=== PATIENT | female | born 1960 | race Caucasian/White ===

== ENCOUNTER 2017-03-09 13:47 | Observation (INO) ==
[2017-03-09 14:29] LABS: Amphetamine Screen,Urine Negative ng/mL (Cutoff=1000); Barbiturate Screen,Urine Negative ng/mL (Cutoff=200); Benzodiazepines Screen,Urine Positive ng/mL (Cutoff=200); Cannabinoid Screen,Urine Negative ng/mL (Cutoff = 50); Cocaine Screen,Urine Negative ng/mL (Cutoff= 300); Opiate Screen,Urine Negative ng/mL (Cutoff=300); Phencyclidine Screen,Urine Negative ng/mL (Cutoff=25)
--- NOTE | 2017-03-09 14:42 | Emergency Department Note ---
Disposition Clinical Impression: Wernickes encephalopathy, Hallucinations Disposition: Admitted As Inpatient Condition: Good Psych HPI - General Chief Complaint: ED Psychiatric Symptoms Stated Complaint: hallucinations Time Seen by Provider: 03/09/17 14:04 Source: patient, family Nursing Notes Reviewed: Yes Vital Signs Reviewed: Yes - History of Present Illness HPI Narrative: Patient is a 56 y/o female that present today, accompanied by her two daughters , with a history of hallucinations for approximately 24 hours. The patient reports that the previous evening she saw multiple clowns in her home and a man was trying "to get in her house". The following morning she saw multiple people , of difference ages, in her home, along with a deer and a kangaroo. The patient states that she interacted with the people and the kangaroo, in addition to cooking them lunch. This is the first time the patient has experienced this, which was supported by the daughters. The daughters also informed that the patient was taken to alf as a result of disorderly conduct when the [facility] department were called to her home to address "the man trying to get in her home". Additionally, the deer , kangaroo, and people accompanied the patient from alf to her home, around midnight. The patient does not believe that these figures are hallucinations because to her they "seemed very real" and she was able to hold conversations wtih them. The patient has a long-standing history of heavy alcohol consumption ranging from 6 cans of beer per day to 24 cans of beer per day. She smokes two packs of cigarettes per day. The patient believes herself to be healthy in regards to diet and drinks upwards of "a gallon of water per day". - Related Data Home Medications Medication Instructions Recorded Confirmed No Known Home Drugs 03/09/17 03/09/17 Allergies Allergy/AdvReac Type Severity Reaction Status Date / Time shellfish derived Allergy Anaphylaxis Verified 03/09/17 14:01 All systems ED: reviewed and negative except as stated. Constitutional: Denies: fever, chills Cardiovascular: Denies: chest pain, palpitations Respiratory: Denies: cough, dyspnea Gastrointestinal: Denies: abdominal pain, nausea Musculoskeletal: Denies: back pain Integumentary: Denies: rash, abrasion, lesions Neurological: Reports: abnormal gait. Denies: headache, weakness Psychiatric: Reports: auditory hallucinations, visual hallucinations Endocrine: Denies: fatigue Past Medical History - Past Medical History Medical history: Reports: no medical history Psychiatric history: Reports: no psych history - Social History Smoking Status: Current every day smoker Alcohol use: Reports: heavy Drug use: Reports: opiates Physical Exam General appearance: NAD, conversant Eyes: anicteric sclerae, moist conjunctivae; PERRL HENT: Atraumatic; oropharynx clear with moist mucous membranes and no mucosal ulcerations Neck: Normal inspection; Trachea midline; FROM, supple Lungs: CTA, with normal respiratory effort and no intercostal retractions CV: RRR, no MRGs Abdomen: Soft, non-tender; no rebound or gaurding Extremities: No peripheral edema or extremity lymphadenopathy Skin: Normal temperature; no rash, ulcers or lesions Psych: Appropriate mood and affect - General Limitations: no limitations General appearance: alert, in no apparent distress - Expanded Neurological Exam Patient oriented to: Present: person, place, time Speech: Present: fluid speech Cranial nerves: EOM function (II, III, IV, ): Normal, facial sensation (V): Normal, facial palsy (VII): Normal, gag reflex (IX): Normal, spinal accessory function (XI): Normal, tongue deviation (XII): Normal Cerebellar function: ataxic gait (2 steps at initiation) Motor strength - LUE: 5/5 Motor strength - RUE: 5/5 Motor strength - LLE: 5/5 Motor strength - RLE: 5/5 Coma Scale Eye Opening: Spontaneous Coma Scale Motor Response: Obeys Commands Coma Scale Verbal Response: Oriented Coma Scale Total: 15 Course - Reevaluation(s) Reevaluation #1: Upon reevaluation the patient's new onset hallucinations, confusion, ataxia in the setting of chronic alcohol use, patient will receive IV thiamine as well as a head CT. - Consultations Consultation #1: Discussed with hospital Dr. Evans. Pt accepted for admission Vital Signs Temperature 98.3 F 03/09/17 13:55 Pulse Rate 89 03/09/17 13:55 Respiratory Rate 16 03/09/17 13:55 Blood Pressure 141/82 03/09/17 13:55 O2 Sat by Pulse Oximetry 97 03/09/17 13:55 Temperature 97.7 F 03/10/17 07:42 Pulse Rate 65 03/10/17 07:42 Respiratory Rate 16 03/10/17 07:42 Blood Pressure 146/78 03/10/17 07:42 O2 Sat by Pulse Oximetry 96 03/10/17 07:42 Oxygen Delivery Oxygen Delivery Room Air Psych - Lab Data Result diagrams: 03/10/17 03:27 03/10/17 03:27 Lab Results 03/09/17 03/09/17 03/09/17 Range/Units 14:02 14:35 14:35 WBC 6.6 (4.3-11.1) K/mcL RBC 4.44 (3.82-4.97) M/mcL Hgb 13.9 (11.5-15.4) g/dL Hct 41.8 (35.3-44.9) % MCV 94.1 (83.0-100.0) fL MCH 31.3 (28.0-33.3) pg MCHC 33.3 (31.6-35.5) g/dL RDW 13.2 (11.5-14.5) % Plt Count 155 (140-400) K/mcL MPV 10.0 (9.4-12.4) fL Immature Gran % 0.5 (0-4) % Seg Neutrophils % 68.5 % Lymphocytes % 20.9 % Monocytes % 7.8 % Eosinophils % 1.4 % Basophils % 0.9 % Neutrophils # 4.6 (1.6-8.9) K/mcL Lymphocytes # 1.4 (0.6-4.6) K/mcL Monocytes # 0.5 (0.0-1.3) K/mcL Eosinophils # 0.1 (0.0-0.6) K/mcL Basophils # 0.1 (0.0-0.2) K/mcL Sodium 140 (136-145) mEq/L Potassium 3.9 (3.5-4.5) mEq/L Chloride 104 (98-109) mEq/L Carbon Dioxide 27 (19-29) mEq/L BUN 6 L (7-20) mg/dL Creatinine 0.64 (0.57-1.11) mg/dL Est GFR ( Amer) > 60 (> 60) Est GFR (Non-Af Amer) > 60 (> 60) BUN/Creatinine Ratio 9 (6-26) Glucose 120 H (70-99) mg/dL Calculated Osmolality 289 (280-300) Calcium 9.5 (8.6-10.8) mg/dL Magnesium 1.8 (1.6-2.6) mg/dL Urine Color (Yellow) Urine Clarity (Clear) Urine pH (5.0-8.0) pH Units Ur Specific [place] (1.010-1.025) Urine Protein (Neg-Trace) mg/dL Urine Glucose (UA) (Normal) mg/dL Urine Ketones (Negative) mg/dL Urine Blood (Negative) Urine Nitrite (Negative) Urine Bilirubin (Negative) Urine Urobilinogen (Normal) mg/dL Ur Leukocyte Esterase (Negative) Urine Microscopic RBC (0-3) per hpf Ur Squamous Epith Cells (None-Few) per lpf Urine Bacteria (None-Few) per hpf Hyaline Casts (None-Few) per lpf Salicylates < 5.0 L (15-30) mg/dL Urine Opiates Screen Negative (Ashcfc=839) ng/mL Acetaminophen < 1.0 L (10-30) mcg/mL Ur Barbiturates Screen Negative (Twagot=436) ng/mL Ur Phencyclidine Scrn Negative (Cutoff=25) ng/mL Ur Amphetamines Screen Negative (Oorril=1130) ng/mL U Benzodiazepines Scrn Positive H (Wcosxq=041) ng/mL Urine Cocaine Screen Negative (Cutoff= 300) ng/mL U Marijuana (THC) Screen Negative (Cutoff = 50) ng/mL Ethyl Alcohol 27 H (0-10) mg/dL 03/09/17 Range/Units 14:42 WBC (4.3-11.1) K/mcL RBC (3.82-4.97) M/mcL Hgb (11.5-15.4) g/dL Hct (35.3-44.9) % MCV (83.0-100.0) fL MCH (28.0-33.3) pg MCHC (31.6-35.5) g/dL RDW (11.5-14.5) % Plt Count (140-400) K/mcL MPV (9.4-12.4) fL Immature Gran % (0-4) % Seg Neutrophils % % Lymphocytes % % Monocytes % % Eosinophils % % Basophils % % Neutrophils # (1.6-8.9) K/mcL Lymphocytes # (0.6-4.6) K/mcL Monocytes # (0.0-1.3) K/mcL Eosinophils # (0.0-0.6) K/mcL Basophils # (0.0-0.2) K/mcL Sodium (136-145) mEq/L Potassium (3.5-4.5) mEq/L Chloride (98-109) mEq/L Carbon Dioxide (19-29) mEq/L BUN (7-20) mg/dL Creatinine (0.57-1.11) mg/dL Est GFR ( Amer) (> 60) Est GFR (Non-Af Amer) (> 60) BUN/Creatinine Ratio (6-26) Glucose (70-99) mg/dL Calculated Osmolality (280-300) Calcium (8.6-10.8) mg/dL Magnesium (1.6-2.6) mg/dL Urine Color Yellow (Yellow) Urine Clarity Clear (Clear) Urine pH 6.5 (5.0-8.0) pH Units Ur Specific [place] 1.009 L (1.010-1.025) Urine Protein Negative (Neg-Trace) mg/dL Urine Glucose (UA) Normal (Normal) mg/dL Urine Ketones Negative (Negative) mg/dL Urine Blood Negative (Negative) Urine Nitrite Negative (Negative) Urine Bilirubin Negative (Negative) Urine Urobilinogen Normal (Normal) mg/dL Ur Leukocyte Esterase Negative (Negative) Urine Microscopic RBC 0-3 (0-3) per hpf Ur Squamous Epith Cells Few (None-Few) per lpf Urine Bacteria Few (None-Few) per hpf Hyaline Casts None Seen (None-Few) per lpf Salicylates (15-30) mg/dL Urine Opiates Screen (Heblti=835) ng/mL Acetaminophen (10-30) mcg/mL Ur Barbiturates Screen (Wfimea=016) ng/mL Ur Phencyclidine Scrn (Cutoff=25) ng/mL Ur Amphetamines Screen (Urutxw=3684) ng/mL U Benzodiazepines Scrn (Cmqeel=158) ng/mL Urine Cocaine Screen (Cutoff= 300) ng/mL U Marijuana (THC) Screen (Cutoff = 50) ng/mL Ethyl Alcohol (0-10) mg/dL Psychiatric Medical Clearance - Medical Clearance Checklist Medical History: No Social History Section defined Current Vitals: Last Vital Signs Temp 97.7 F 03/10/17 07:42 Pulse 65 03/10/17 07:42 Resp 16 03/10/17 07:42 BP 146/78 03/10/17 07:42 Pulse Ox 96 03/10/17 07:42 Psychiatric Lab Panel: Drug Levels and Toxicity 03/09/17 14:35 Acetaminophen < 1.0 L Ethyl Alcohol 27 H Abnormal Labs: Abnormal lab results Carbon Dioxide 30 mEq/L (19-29) H 03/10/17 03:27 POC Glucose 116 (58-89) H 03/09/17 19:33 Ur Specific [place] 1.009 (1.010-1.025) L 03/09/17 14:42 Salicylates < 5.0 mg/dL (15-30) L 03/09/17 14:35 Acetaminophen < 1.0 mcg/mL (10-30) L 03/09/17 14:35 U Benzodiazepines Scrn Positive ng/mL (Psfkgp=623) H 03/09/17 14:02 Ethyl Alcohol 27 mg/dL (0-10) H 03/09/17 14:35 Attestation Statement - Attestation Attestation: I, Ayaan Gary, examined this patient and my medical decision-making was reviewed with the OIL PLANT OPERATOR/PA/Advanced Practice Nurse/Resident Physician. I agree with the documented findings, disposition and treatment plan as described except to the extent set forth below. 56-year-old female brought in by family for concerns of hallucinations. Patient is a chronic alcoholic and drinks multiple beers daily. Patient states that she occasionally goes a day without drinking however her last drink was last night. Is not tremulous however she is having hallucinations which include seeing and talking with clowns and Kangaroo's. She does is hard to say that she may become lunch. Patient was paranoid and had hallucinations regarding someone trying to break into her house, the patient called, she was taken to alf due to erratic behavior because she refused EMS transport. CT of the head was negative for acute fracture or internal hemorrhage. Laboratory evaluation was largely within normal limits. Is possible patient's symptoms may be secondary to Wernicke's encephalitis. She was given thiamine in the emergency department. She will be admitted to the hospital for further care and evaluation of her hallucinations.
[2017-03-09 14:56] LABS: Hematocrit 41.8 % (35.3-44.9); Hemoglobin 13.9 g/dL (11.5-15.4); Immature Granulocytes % 0.5 % (0-4); Lymphocytes % 20.9 %; Mean Corpuscular HGB Conc 33.3 g/dL (31.6-35.5); Mean Corpuscular Hemoglobin 31.3 pg (28.0-33.3); Mean Corpuscular Volume 94.1 fL (83.0-100.0); Monocytes % 7.8 %; Platelet Count 155 K/mcL (140-400); Red Blood Count 4.44 M/mcL (3.82-4.97); Red Cell Distribution Width 13.2 % (11.5-14.5); Segmented Neutrophils % 68.5 %
[2017-03-09 14:57] LABS: Basophils # 0.1 K/mcL (0.0-0.2); Basophils % 0.9 %; Eosinophils # 0.1 K/mcL (0.0-0.6); Eosinophils % 1.4 %; Lymphocytes # 1.4 K/mcL (0.6-4.6); Monocytes # 0.5 K/mcL (0.0-1.3); Neutrophils # 4.6 K/mcL (1.6-8.9)
[2017-03-09 15:03] LABS: BUN/Creatinine Ratio 9 (6-26); Blood Urea Nitrogen 6 mg/dL (7-20); Calcium 9.5 mg/dL (8.6-10.8); Carbon Dioxide 27 mEq/L (19-29); Chloride 104 mEq/L (98-109); Ethanol 27 mg/dL (0-10); Glucose 120 mg/dL (70-99); Osmolality,Calculated 289 (280-300); Potassium 3.9 mEq/L (3.5-4.5); Sodium 140 mEq/L (136-145); eGFR For African Americans > 60 (> 60); eGFR For Non-African Americans > 60 (> 60)
[2017-03-09 15:06] LABS: Acetaminophen < 1.0 mcg/mL (10-30); Salicylate < 5.0 mg/dL (15-30)
[2017-03-09 15:36] LABS: Bacteria,Urine Few per hpf (None-Few); Bilirubin,Urine Negative (Negative); Clarity,Urine Clear (Clear); Color,Urine Yellow (Yellow); Glucose,Urine (UA) Normal (Normal); Hyaline Casts,Urine None Seen per lpf (None-Few); Ketones,Urine Negative (Negative); Leukocyte Esterase,Urine Negative (Negative); Nitrite,Urine Negative (Negative); PH,Urine 6.5 pH Units (5.0-8.0); Protein,Urine Negative (Neg-Trace); RBC,Urine 0-3 per hpf (0-3); Specific Gravity,Urine 1.009 (1.010-1.025); Urobilinogen,Urine Normal (Normal)
[2017-03-09 15:37] LABS: Blood,Urine Negative (Negative)
[2017-03-09] MEDS ORDERED: Magnesium Sulfate 1 GM in D5% in Water 100 ML IVPB ONE (15:45)
[2017-03-09] MEDS ORDERED: Thiamine (B-1) 500 MG in D5% in Water 50 ML IVPB SCH ×2 (15:45→16:00)
[2017-03-09 15:47] LABS: Squamous Epithelial Cell,Urine Few per lpf (None-Few)
[2017-03-09 16:05] LABS: Magnesium 1.8 mg/dL (1.6-2.6)
[2017-03-09] MEDS ORDERED: *HR* LORazepam 2 MG/ML VIAL IVP PRN (21:27)
[2017-03-09] MEDS ORDERED: 0.9 % Sodium Chloride 1,000 ML IVC SCH (21:30)
--- NOTE | 2017-03-09 21:31 | Internal Med History&Physical ---
Date of Encounter: 03/09/17 Time of Encounter: 21:28 Assessment and Plan (1) Alcohol withdrawal Current visit: Yes Status: Acute Serial protocol. She mentions that she starts withdrawing today's after last drink. Last drink yesterday midnight. Qualifiers: Qualified Code(s): F10.239 - Alcohol dependence with withdrawal, unspecified (2) Hallucinations Current visit: Yes Status: Acute Likely related to chronic alcoholism contravening to psychosis. During my interview she is alert oriented times 3. Will start the patient on thiamine 100 mg IV daily. Seat [employer] Machine the patient on programs for alcoholics and rehab facility. She denies any drug use. CT had in the emergency room shows no intracranial pathology Internal Medicine - H&P: HPI Chief complaint: hallucinations History of present illness: Ms. Abebe is a 56 year old female who is a lifelong alcoholic drinks at least 6 beers every day presents to the emergency room today with a main component of hallucinations. Patient has been seeing things that are not there. This has started yesterday during my interview patient is alert oriented times 3. She denies any drug abuse. She denies any suicidal or homicidal ideations. No fever chills or focal weakness Past Med Surg Social Fam HX - Past Medical History Medical history: no medical history Psychiatric history: no psych history - Social History Smoking Status: Current every day smoker Packs per day: 2 Smokeless Tobacco Status: No Alcohol use: heavy Drug use: opiates - Family History Mother Living Status: Cause of : DM Hx Family Cardiac Disorders: No Hx Family Respiratory Disorders: Yes Hx Family Cancer: No Hx Family GI Disorders: No Hx Family Endocrine Disorder: Yes (DM) Father History Unknown: Yes Internal Medicine - H&P: Meds No Known Home Drugs 03/09/17 [History] Allergies shellfish derived Allergy (Verified 03/09/17 14:01) Anaphylaxis All Systems PM: A 10-system review of systems was performed and is negative for pertinent findings except as documented above in the HPI. Review of systems: 10 point review of systems is negative except for HPI - Constitutional Vitals: Temp Pulse Resp BP Pulse Ox 98.6 F 90 16 128/78 99 03/09/17 19:29 03/09/17 19:29 03/09/17 19:29 03/09/17 19:29 03/09/17 19:29 Exam: Gen.: patient is alert oriented times 3 Not in distress cardiac: normal S1 S2 no additional sounds are murmurs chest: clear auscultation abdomen: soft nontender nondistended normal bowel sounds lower extremity lax calf muscles Internal Med - H&P Results - Labs CBC & Chem 7: 03/09/17 14:35 03/09/17 14:35
[2017-03-10 04:01] LABS: BUN/Creatinine Ratio 11 (6-26); Blood Urea Nitrogen 7 mg/dL (7-20); Calcium 9.7 mg/dL (8.6-10.8); Carbon Dioxide 30 mEq/L (19-29); Chloride 104 mEq/L (98-109); Glucose 88 mg/dL (70-99); Magnesium 2.1 mg/dL (1.6-2.6); Osmolality,Calculated 287 (280-300); Potassium 4.2 mEq/L (3.5-4.5); Sodium 140 mEq/L (136-145); eGFR For African Americans > 60 (> 60); eGFR For Non-African Americans > 60 (> 60)
[2017-03-10 04:04] LABS: Basophils # 0.1 K/mcL (0.0-0.2); Basophils % 1.2 %; Eosinophils # 0.2 K/mcL (0.0-0.6); Eosinophils % 4.9 %; Hematocrit 41.7 % (35.3-44.9); Immature Granulocytes % 0.2 % (0-4); Lymphocytes # 1.9 K/mcL (0.6-4.6); Lymphocytes % 38.4 %; Mean Corpuscular HGB Conc 33.6 g/dL (31.6-35.5); Mean Corpuscular Hemoglobin 31.7 pg (28.0-33.3); Mean Corpuscular Volume 94.6 fL (83.0-100.0); Mean Platelet Volume 10.1 fL (9.4-12.4); Monocytes # 0.5 K/mcL (0.0-1.3); Monocytes % 10.6 %; Neutrophils # 2.2 K/mcL (1.6-8.9); Platelet Count 159 K/mcL (140-400); Red Blood Count 4.41 M/mcL (3.82-4.97); Red Cell Distribution Width 13.2 % (11.5-14.5); Segmented Neutrophils % 44.7 %
[2017-03-10 07:46] VITALS: BP 146/78
[2017-03-10] MEDS ORDERED: Thiamine (B-1) 100 MG in D5% in Water 50 ML IVPB SCH (09:00)
[2017-03-10] MEDS ORDERED: Folic Acid 1 MG TABLET PO SCH (09:00)
[2017-03-10] MEDS ORDERED: Famotidine 20 MG TABLET PO SCH (09:00)
--- NOTE | 2017-03-10 09:51 | Discharge Summary ---
Date of Encounter: 03/10/17 Time of Encounter: 09:15 - Discharge Diagnosis (1) Hallucinations Priority: Primary Status: Resolved (2) Alcohol withdrawal Priority: Primary Status: Acute Comments: No signs of acute withdrawal while admitted. Did not require benzos. Patient declined alcohol abuse counseling (3) Tobacco abuse Priority: Secondary Status: Chronic Comments: Smokes 2 packs per day, declined counseling - Discharge Medications Home Medications: No Known Home Drugs 03/09/17 [History] Allergies/Adverse Reactions: Allergies shellfish derived Allergy (Verified 03/09/17 14:01) Anaphylaxis Date of admission: 03/09/17 17:33 Primary care physician: PCP NONE Consults: 03/09/17 21:27 Consult to Hosted Services Analyst [CONS] Routine Reason for SW Consult: alcoholic Discharging clinician: Valerie Carlos Anticipated date of discharge: 03/10/17 - Patient Status Disposition: Home, Self-Care Condition: Good Functional capacity at discharge: independent ambulation Overall status at discharge: patient is back to baseline - Discharge Instructions Follow Up With: Ayaan Horvath [Non-Partnered Physician] - Additional Instructions: Follow-up with your new primary care provider as scheduled - Diet and Activity Activity: increase activity as tolerated Diet: regular diet Hospital course: Ms. Abebe is a 56 year old female with past medical history of lifelong alcohol abuse of at least 6 beers per day, tobacco abuse 2 packs per day. Patient presented to the emergency department chief complaint of hallucinations. Patient had been seeing things that were not present that started on the day prior to presentation. Resolved prior to admission. She denied any suicidal or homicidal ideations. Workup in the emergency department notable for positive toxicology screen for benzos and alcohol. Patient does not have any illicit prescriptions for benzodiazepines. Head CT negative. No leukocytosis, urinalysis negative. No acute infections identified. Patient was admitted to the hospitalist service for further evaluation and management. Patient was admitted and observed overnight and she remained alert and oriented 3 with no further hallucinations. She did not display any signs of acute alcohol withdrawal while admitted and did not require IV lorazepam. She declined counseling for alcohol and tobacco abuse. She stated she had no intentions of stopping either. She was back to her baseline and had an upright and steady gait without any focal neurological weaknesses. She was discharged home in stable condition with close outpatient follow-up recommended. ITS Impressions Head CT 03/09/17 15:44 IMPRESSION: No acute intracranial abnormality. D/ / Denny Delgadillo MD / Denny Delgadillo MD Interpreting Provider: Denny Delgadillo MD - Time Spent with Patient Total time spent providing and/or coordinating discharge services: - Constitutional Vitals: Temp Pulse Resp BP Pulse Ox 97.7 F 65 16 146/78 96 03/10/17 07:42 03/10/17 07:42 03/10/17 07:42 03/10/17 07:42 03/10/17 07:42 General appearance: Present: A&O X 3, pleasant, no acute distress, answers questions appropriately - Head Head exam: Present: atraumatic, normocephalic - Eye Eye exam: Present: PERRL, conjuntiva pink, sclera anicteric Pupils: Present: PERRL - Neck Neck exam general surgery: Present: supple, trachea midline. Absent: lymphadenopathy - Respiratory Respiratory exam: Present: decreased breath sounds. Absent: accessory muscle use, rales, respiratory distress, rhonchi, wheezes - Cardiovascular Cardiovascular exam: Present: RRR, +S1, +S2. Absent: diastolic murmur, gallop, rubs, systolic murmur - GI/Abdominal GI/Abdominal exam: Present: normal bowel sounds, soft, no peritoneal signs. Absent: distended, tenderness - Extremities Exam Extremities exam: Present: warm, radial pulses palpable and symetrical. Absent : calf tenderness, cyanotic, pedal edema - Neurological Exam Neurological exam: Present: alert, CN II-XII intact, normal gait, oriented X3, no focal deficits, strengths equal and symetr throughout. Absent: pronater drift, facial droop, speech deficit - Skin Skin exam: Present: dry, intact, pallor, warm
== END 2017-03-10 10:20 | disposition home or self-care (01) ==
LOC: EMEROO 13:47 → 2NENU 13:47 → SUATTDRO 17:33 → 3BNU 18:02
PROVIDERS: ADMIT Internal Medicine Endocrinology, Diabetes & Metabolism; ATTEND Nurse Practitioner Family

== ENCOUNTER 2020-12-26 09:47 | Observation (INO) ==
[2020-12-26] MEDS ORDERED: *HR* LORazepam 2 MG/ML VIAL IVP PRN ×4 (09:53→13:36)
[2020-12-26] MEDS ORDERED: Vitamin B Complex/Vit C/Vit E 1 EACH TABLET PO SCH (10:00)
[2020-12-26] MEDS ORDERED: Folic Acid 1 MG TABLET PO SCH (10:00)
[2020-12-26 10:26] LABS: Basophils % 0.8 %; Hematocrit 35.5 % (35.3-44.9); Hemoglobin 11.8 g/dL (11.5-15.4); Mean Corpuscular HGB Conc 33.2 g/dL (31.6-35.5); Mean Corpuscular Hemoglobin 33.1 pg (28.0-33.3); Mean Corpuscular Volume 99.4 fL (83.0-100.0); Red Blood Count 3.57 M/mcL (3.82-4.97)
[2020-12-26 10:28] LABS: Eosinophils % 0.8 %; Immature Platelets 7.2 % (1.1-6.1); Lymphocytes # 0.4 K/mcL (0.6-4.6); Lymphocytes % 11.5 %; Monocytes # 0.3 K/mcL (0.0-1.3); Monocytes % 7.3 %; Red Cell Distribution Width 13.1 % (11.5-14.5); Segmented Neutrophils % 78.6 %; White Blood Count 3.8 K/mcL (4.3-11.1)
[2020-12-26 10:30] LABS: Platelet Count 69 K/mcL (140-400)
[2020-12-26 10:38] LABS: Prothrombin Time 11.1 Seconds (9.4-12.1)
[2020-12-26 10:43] LABS: Bilirubin,Urine Negative (Negative); Blood,Urine Negative (Negative); Clarity,Urine Clear (Clear); Color,Urine Yellow (Yellow); Glucose,Urine (UA) Normal (Normal); Hyaline Casts,Urine Moderate per lpf (None Seen); Ketones,Urine >150 mg/dL (Negative); Leukocyte Esterase,Urine Negative (Negative); Mucus,Urine Few per lpf (None-Few); Nitrite,Urine Negative (Negative); Protein,Urine 50 mg/dL (Neg-Trace); RBC,Urine 0-3 per hpf (0-3); Specific Gravity,Urine 1.025 (1.010-1.025); Squamous Epithelial Cell,Urine Few per hpf (None-Few); Urobilinogen,Urine >=8.0 mg/dL (Normal); WBC,Urine 0-3 per hpf (0-3)
[2020-12-26 10:48] LABS: Platelet Estimate Decreased (Normal)
[2020-12-26 10:51] LABS: BUN/Creatinine Ratio 11 (6-26); Blood Urea Nitrogen 5 mg/dL (6-20); Calcium 8.4 mg/dL (8.6-10.3); Carbon Dioxide 16 mEq/L (23-29); Chloride 100 mEq/L (98-107); Ethanol 61 mg/dL (Less than 10); Glucose 92 mg/dL (70-105); Osmolality,Calculated 287 (280-300); Potassium 3.4 mEq/L (3.5-5.1); Sodium 140 mEq/L (136-145); Troponin I < 0.03 ng/mL (< 0.04); eGFR For African Americans > 60 (> 60); eGFR For Non-African Americans > 60 (> 60)
[2020-12-26] MEDS ORDERED: Ringers Solution, Lactated 1,000 ML IVC ONE ×2 (13:36→13:44)
[2020-12-26] MEDS ORDERED: Nicotine 14 MG PATCH.TD24 TD SCH (13:45)
[2020-12-26] MEDS ORDERED: Thiamine (B-1) 100 MG in 0.9 % Sodium Chloride 50 ML IVPB SCH (13:45)
[2020-12-26] MEDS: Acetaminophen 325 MG TABLET PO PRN (20:32)
[2020-12-26] MEDS: Ondansetron ODT 4 MG TAB.RAPDIS SL PRN (20:38)
[2020-12-27] MEDS: Acetaminophen 325 MG TABLET PO PRN (03:12)
[2020-12-27 03:17] VITALS: BP 130/61
[2020-12-27] MEDS: Ondansetron ODT 4 MG TAB.RAPDIS SL PRN (05:34)
[2020-12-27 05:51] LABS: Hemoglobin 11.1 g/dL (11.5-15.4); Red Cell Distribution Width 12.5 % (11.5-14.5)
[2020-12-27 05:53] LABS: Immature Platelets 10.2 % (1.1-6.1); Mean Corpuscular HGB Conc 32.6 g/dL (31.6-35.5); Mean Corpuscular Hemoglobin 32.2 pg (28.0-33.3); Mean Corpuscular Volume 98.6 fL (83.0-100.0); Mean Platelet Volume 11.4 fL (9.4-12.4); Red Blood Count 3.45 M/mcL (3.82-4.97); White Blood Count 2.8 K/mcL (4.3-11.1)
[2020-12-27] MEDS ORDERED: *HR* Enoxaparin 40 MG/0.4 ML SYRINGE SQ SCH (06:00)
[2020-12-27 06:09] LABS: BUN/Creatinine Ratio 7 (6-26); Blood Urea Nitrogen 3 mg/dL (6-20); Calcium 8.4 mg/dL (8.6-10.3); Carbon Dioxide 25 mEq/L (23-29); Chloride 96 mEq/L (98-107); Glucose 71 mg/dL (70-105); Magnesium 1.3 mg/dL (1.6-2.6); Osmolality,Calculated 277 (280-300); Potassium 3.4 mEq/L (3.5-5.1); Sodium 136 mEq/L (136-145); eGFR For African Americans > 60 (> 60); eGFR For Non-African Americans > 60 (> 60)
== END 2020-12-27 09:25 | disposition left against medical advice (07) ==
LOC: 3BNU 09:47 → EMEROOARM 09:47 → 3BNU 12:41
PROVIDERS: ADMIT Internal Medicine; ATTEND Internal Medicine

== ENCOUNTER 2021-01-06 12:49 | Inpatient (IN) ==
[2021-01-06] MEDS ORDERED: 0.9 % Sodium Chloride 1,000 ML IVC ONE (13:16)
[2021-01-06] MEDS ORDERED: Ondansetron 4 MG/2 ML VIAL IVP ONE (13:28)
[2021-01-06 14:16] LABS: Bacteria,Urine Few per hpf (None-Few); Bilirubin,Urine Small (Negative); Blood,Urine Moderate (Negative); Clarity,Urine Turbid (Clear); Color,Urine Yellow (Yellow); Glucose,Urine (UA) Normal (Normal); Hyaline Casts,Urine Moderate per lpf (None Seen); Ketones,Urine 150 mg/dL (Negative); Leukocyte Esterase,Urine Negative (Negative); Mucus,Urine Few per lpf (None-Few); Nitrite,Urine Negative (Negative); Protein,Urine 50 mg/dL (Neg-Trace); RBC,Urine 0-3 per hpf (0-3); Specific Gravity,Urine 1.024 (1.010-1.025); Squamous Epithelial Cell,Urine Few per hpf (None-Few); Urobilinogen,Urine >=8.0 mg/dL (Normal)
[2021-01-06 14:41] LABS: Adenovirus Not Detected (Not Detect); Bordetella Pertussis Not Detected (Not Detect); Chlamydophila pneumoniae Not Detected (Not Detect); Coronavirus 229E Not Detected (Not Detect); Coronavirus HKU1 Not Detected (Not Detect); Coronavirus NL63 Not Detected (Not Detect); Coronavirus OC43 Not Detected (Not Detect); Human Metapneumovirus Not Detected (Not Detect); Human Rhinovirus/Enterovirus Not Detected (Not Detect); Influenza A Subtype 2009 H1 Not Detected (Not Detect); Influenza B Not Detected (Not Detect); Mycoplasma pneumoniae Not Detected (Not Detect); Parainfluenza Virus 1 Not Detected (Not Detect); Parainfluenza Virus 2 Not Detected (Not Detect); Parainfluenza Virus 3 Not Detected (Not Detect); Parainfluenza Virus 4 Not Detected (Not Detect); Respiratory Syncytial Virus Not Detected (Not Detect); SARS-CoV-2 Not Detected (Not Detect)
[2021-01-06 15:13] LABS: Hemoglobin 10.7 g/dL (11.5-15.4); Mean Corpuscular Volume 101.5 fL (83.0-100.0); Red Cell Distribution Width 13.9 % (11.5-14.5)
[2021-01-06 15:15] LABS: Basophils % 0.6 %; Hematocrit 33.3 % (35.3-44.9); Immature Granulocytes % 1.2 % (0-4); Immature Platelets 5.4 % (1.1-6.1); Lymphocytes # 0.4 K/mcL (0.6-4.6); Lymphocytes % 7.8 %; Mean Corpuscular HGB Conc 32.1 g/dL (31.6-35.5); Mean Corpuscular Hemoglobin 32.6 pg (28.0-33.3); Mean Platelet Volume 10.6 fL (9.4-12.4); Monocytes # 0.4 K/mcL (0.0-1.3); Neutrophils # 4.1 K/mcL (1.6-8.9); Platelet Count 75 K/mcL (140-400); Red Blood Count 3.28 M/mcL (3.82-4.97); Segmented Neutrophils % 82.4 %
[2021-01-06 15:35] LABS: Alanine Aminotransferase 47 Units/L (7-52); Albumin 3.1 g/dL (3.5-5.7); Albumin/Globulin Ratio 1.2 (1.1-2.2); Alkaline Phosphatase 108 Units/L (34-104); Aspartate Amino Transferase 167 Units/L (13-39); BUN/Creatinine Ratio 19 (6-26); Bilirubin,Direct 0.7 mg/dL (0.0-0.2); Bilirubin,Indirect 0.7 mg/dL (0.0-1.0); Bilirubin,Total 1.4 mg/dL (0.3-1.0); Blood Urea Nitrogen 6 mg/dL (6-20); Calcium 7.7 mg/dL (8.6-10.3); Carbon Dioxide 20 mEq/L (23-29); Chloride 100 mEq/L (98-107); Ethanol 67 mg/dL (Less than 10); Globulin 2.6 g/dL (2.4-3.5); Glucose 77 mg/dL (70-105); Osmolality,Calculated 274 (280-300); Potassium 3.7 mEq/L (3.5-5.1); Sodium 134 mEq/L (136-145); Total Protein 5.7 g/dL (6.4-8.9); eGFR For African Americans > 60 (> 60); eGFR For Non-African Americans > 60 (> 60)
[2021-01-06 15:36] LABS: Troponin I < 0.03 ng/mL (< 0.04)
[2021-01-06] MEDS ORDERED: Famotidine 20 MG/2 ML VIAL IVP ONE (16:01)
[2021-01-06] MEDS ORDERED: Ondansetron 4 MG/2 ML VIAL IVP PRN (16:24)
[2021-01-06] MEDS ORDERED: Naloxone 0.4 MG/ML INJ IVP PRN (16:24)
[2021-01-06] MEDS ORDERED: *HR* LORazepam 2 MG/ML VIAL IVP PRN (17:16)
[2021-01-06] MEDS: Thiamine (B-1) 100 MG, Folic Acid 1 MG, MVI, adult with vitamin K 10 ML in 0.9 % Sodi... IVPB SCH (18:03)
[2021-01-06] MEDS: Nicotine 14 MG PATCH.TD24 TD SCH (18:15)
[2021-01-06] MEDS ORDERED: Ibuprofen 600 MG TABLET PO ONE (19:29)
[2021-01-06] MEDS: Pantoprazole 40 MG VIAL IVP SCH (19:53)
[2021-01-06] MEDS: Ringers Solution, Lactated 1,000 ML IVC SCH (19:55)
[2021-01-07 02:25] LABS: Hemoglobin 9.9 g/dL (11.5-15.4); Immature Granulocytes % 0.6 % (0-4); Mean Platelet Volume 11.6 fL (9.4-12.4)
[2021-01-07 02:27] LABS: Basophils % 0.6 %; Eosinophils # 0.1 K/mcL (0.0-0.6); Eosinophils % 1.5 %; Hematocrit 29.2 % (35.3-44.9); Immature Platelets 6.6 % (1.1-6.1); Lymphocytes # 0.8 K/mcL (0.6-4.6); Lymphocytes % 23.5 %; Mean Corpuscular HGB Conc 33.9 g/dL (31.6-35.5); Mean Corpuscular Hemoglobin 33.1 pg (28.0-33.3); Mean Corpuscular Volume 97.7 fL (83.0-100.0); Monocytes # 0.3 K/mcL (0.0-1.3); Neutrophils # 2.1 K/mcL (1.6-8.9); Red Blood Count 2.99 M/mcL (3.82-4.97); Red Cell Distribution Width 13.7 % (11.5-14.5); Segmented Neutrophils % 65.8 %; White Blood Count 3.2 K/mcL (4.3-11.1)
[2021-01-07 02:31] LABS: Platelet Count 70 K/mcL (140-400)
[2021-01-07 02:43] LABS: Alanine Aminotransferase 36 Units/L (7-52); Albumin 2.8 g/dL (3.5-5.7); Albumin/Globulin Ratio 1.3 (1.1-2.2); Alkaline Phosphatase 92 Units/L (34-104); Aspartate Amino Transferase 92 Units/L (13-39); BUN/Creatinine Ratio 13 (6-26); Bilirubin,Total 1.6 mg/dL (0.3-1.0); Blood Urea Nitrogen 5 mg/dL (6-20); Calcium 7.5 mg/dL (8.6-10.3); Carbon Dioxide 23 mEq/L (23-29); Chloride 102 mEq/L (98-107); Globulin 2.1 g/dL (2.4-3.5); Glucose 61 mg/dL (70-105); Osmolality,Calculated 275 (280-300); Potassium 3.5 mEq/L (3.5-5.1); Sodium 135 mEq/L (136-145); Total Protein 4.9 g/dL (6.4-8.9); eGFR For African Americans > 60 (> 60); eGFR For Non-African Americans > 60 (> 60)
[2021-01-07] MEDS: Pantoprazole 40 MG VIAL IVP SCH ×2 (07:15→20:13)
[2021-01-07] MEDS: Nicotine 14 MG PATCH.TD24 TD SCH (07:16)
[2021-01-07] MEDS: Ringers Solution, Lactated 1,000 ML IVC SCH (07:21)
[2021-01-07] MEDS: *HR* LORazepam 2 MG/ML VIAL IVP PRN ×2 (15:04→22:47)
[2021-01-07] MEDS: Thiamine (B-1) 100 MG, Folic Acid 1 MG, MVI, adult with vitamin K 10 ML in 0.9 % Sodi... IVPB SCH (18:18)
[2021-01-08] MEDS: Pantoprazole 40 MG VIAL IVP SCH ×2 (07:34→22:10)
[2021-01-08] MEDS: Nicotine 14 MG PATCH.TD24 TD SCH (07:35)
[2021-01-08] MEDS: *HR* LORazepam 2 MG/ML VIAL IVP PRN ×4 (09:23→17:14)
[2021-01-08] MEDS ORDERED: *HR* LORazepam 2 MG/ML VIAL IVP PRN (16:37)
[2021-01-08] MEDS: Thiamine (B-1) 100 MG, Folic Acid 1 MG, MVI, adult with vitamin K 10 ML in 0.9 % Sodi... IVPB SCH (17:09)
[2021-01-09 06:12] LABS: Blood Urea Nitrogen < 2 mg/dL (6-20); Calcium 8.9 mg/dL (8.6-10.3); Carbon Dioxide 30 mEq/L (23-29); Chloride 102 mEq/L (98-107); Glucose 104 mg/dL (70-105); Magnesium 1.3 mg/dL (1.6-2.6); Potassium 2.9 mEq/L (3.5-5.1); Sodium 139 mEq/L (136-145); eGFR For African Americans > 60 (> 60); eGFR For Non-African Americans > 60 (> 60)
[2021-01-09] MEDS: Pantoprazole 40 MG VIAL IVP SCH ×2 (08:40→20:05)
[2021-01-09] MEDS: Nicotine 14 MG PATCH.TD24 TD SCH (08:40)
[2021-01-09] MEDS: *HR* LORazepam 2 MG/ML VIAL IVP PRN (14:25)
[2021-01-10 06:39] LABS: BUN/Creatinine Ratio 14 (6-26); Blood Urea Nitrogen 5 mg/dL (6-20); Calcium 8.9 mg/dL (8.6-10.3); Carbon Dioxide 28 mEq/L (23-29); Chloride 105 mEq/L (98-107); Glucose 100 mg/dL (70-105); Osmolality,Calculated 287 (280-300); Potassium 3.1 mEq/L (3.5-5.1); Sodium 140 mEq/L (136-145); eGFR For African Americans > 60 (> 60); eGFR For Non-African Americans > 60 (> 60)
[2021-01-10] MEDS: Pantoprazole 40 MG VIAL IVP SCH (09:00)
[2021-01-10] MEDS: Nicotine 14 MG PATCH.TD24 TD SCH (09:01)
[2021-01-10] MEDS: *HR* Heparin 5,000 UNIT/ML VIAL SQ SCH ×2 (14:52→20:43)
[2021-01-11] MEDS: *HR* Heparin 5,000 UNIT/ML VIAL SQ SCH ×3 (05:28→22:30)
[2021-01-11] MEDS: Nicotine 14 MG PATCH.TD24 TD SCH (08:02)
[2021-01-11] MEDS: Sennosides 8.6 MG TABLET PO SCH ×2 (12:37→22:30)
[2021-01-11] MEDS ORDERED: *HR* LORazepam 2 MG/ML VIAL IVP PRN ×3 (22:57)
[2021-01-12] MEDS: *HR* Heparin 5,000 UNIT/ML VIAL SQ SCH ×3 (05:30→21:30)
[2021-01-12] MEDS: Nicotine 14 MG PATCH.TD24 TD SCH (08:24)
[2021-01-12] MEDS: Sennosides 8.6 MG TABLET PO SCH (21:30)
[2021-01-13] MEDS: *HR* Heparin 5,000 UNIT/ML VIAL SQ SCH ×3 (05:55→21:18)
[2021-01-13] MEDS: Nicotine 14 MG PATCH.TD24 TD SCH ×2 (09:13→10:47)
[2021-01-13] MEDS: Sennosides 8.6 MG TABLET PO SCH (21:18)
[2021-01-14] MEDS: *HR* Heparin 5,000 UNIT/ML VIAL SQ SCH ×2 (06:07→12:58)
[2021-01-14] MEDS: Nicotine 14 MG PATCH.TD24 TD SCH (08:33)
[2021-01-14 11:21] VITALS: BP 111/61
[2021-01-14 11:41] LABS: Adenovirus Not Detected (Not Detect); Bordetella Pertussis Not Detected (Not Detect); Chlamydophila pneumoniae Not Detected (Not Detect); Coronavirus 229E Not Detected (Not Detect); Coronavirus HKU1 Not Detected (Not Detect); Coronavirus NL63 Not Detected (Not Detect); Coronavirus OC43 Not Detected (Not Detect); Human Metapneumovirus Not Detected (Not Detect); Human Rhinovirus/Enterovirus Not Detected (Not Detect); Influenza A Subtype 2009 H1 Not Detected (Not Detect); Influenza B Not Detected (Not Detect); Mycoplasma pneumoniae Not Detected (Not Detect); Parainfluenza Virus 1 Not Detected (Not Detect); Parainfluenza Virus 2 Not Detected (Not Detect); Parainfluenza Virus 3 Not Detected (Not Detect); Parainfluenza Virus 4 Not Detected (Not Detect); Respiratory Syncytial Virus Not Detected (Not Detect); SARS-CoV-2 Not Detected (Not Detect)
== END 2021-01-14 14:05 | DRG 775 ==
LOC: EMEROOARM 12:49 → 3BNU 12:49 → SUATTDRO 16:26 → 3BNU 17:51 → SUATTDRO 01-10 11:14
PROVIDERS: ADMIT Internal Medicine; ATTEND Internal Medicine